=== PATIENT | male | born 1990 | race African-American/Black ===

== ENCOUNTER 2016-08-04 02:10 | Emergency (ER) | payer OTHER ==
[2016-08-04 03:20] LABS: MEAN CORPUSCULAR HEMOGLOBIN 30.2 pg (27.0-33.0); MEAN CORPUSCULAR HGB CONC 32.1 g/dl (32.0-36.5); MEAN CORPUSCULAR VOLUME 94.1 fl (80.0-96.0); RED CELL DISTRIBUTION WIDTH 14.1 % (11.5-14.5); WHITE BLOOD COUNT 7.6 K/mm3 (4.0-10.0)
[2016-08-04 03:33] LABS: AMPHETAMINES LEVEL URINE NEGATIVE (NEGATIVE); BENZODIAZEPINES URINE NEGATIVE (NEGATIVE); COCAINE METABOLITE URINE NEGATIVE (NEGATIVE); CONTROL LINE INT CTR LINE PRESENT; METHADONE URINE NEGATIVE (NEGATIVE); OPIATES URINE NEGATIVE (NEGATIVE); TRICYCLIC ANTIDEPRESS URINE NEGATIVE (NEGATIVE)
[2016-08-04 03:47] LABS: ALBUMIN 4.1 GM/DL (3.2-5.2); ALBUMIN/GLOBULIN RATIO 1.05 (1.00-1.93); ALKALINE PHOSPHATASE 94 U/L (45-117); ALT/SGPT 30 U/L (12-78); ANION GAP 10 MEQ/L (8-16); AST/SGOT 18 U/L (15-37); BILIRUBIN,DIRECT 0.1 MG/DL (0.0-0.2); BILIRUBIN,TOTAL 0.5 MG/DL (0.2-1.0); BLOOD UREA NITROGEN 10 MG/DL (7-18); CALCIUM LEVEL 8.9 MG/DL (8.5-10.1); CARBON DIOXIDE LEVEL 27 MEQ/L (21-32); CHLORIDE LEVEL 108 MEQ/L (98-107); CREATININE FOR GFR 1.08 MG/DL (0.70-1.30); GLOMERULAR FILTRATION RATE > 60.0 (>60); GLUCOSE, FASTING 91 MG/DL (70-105); POTASSIUM SERUM 4.2 MEQ/L (3.5-5.1); SODIUM LEVEL 145 MEQ/L (136-145)
--- NOTE | 2016-08-04 10:13 | EDDOCDS ---
Physician Documentation [facility] Name: Rojelio Lund Age: 25 yrs Sex: Male : 1990 Arrival Date: 08/04/2016 Time: 02:10 Bed U2 Private MD: Disposition: 08/04/16 10:08 Discharged to Home/Self Care. Impression: Alcohol abuse counseling and surveillance, Alcohol abuse with intoxication. - Condition is Stable. - Discharge Instructions: Alcohol Intoxication, Alcohol Use Disorder. - Medication Reconciliation, Local Pharmacy Hours form. - Follow up: Private Physician; When: 1 - 2 days. - Problem is new. - Symptoms have improved. - Notes: return if worsening symptoms Historical: - Allergies: No known drug Allergies; - Home Meds: 1. none - PMHx: insomonia; chronic hip pain right; - PSHx: none; - Social history: Smoking status: Patient states was never smoker of tobacco. No barriers to communication noted, The patient speaks fluent German, Speaks appropriately for age. - Family history: Not pertinent. - : The pt / caregiver states he / she is not on anticoagulants. Home medication list is obtained from the patient. - Exposure Risk Screening:: None identified. Vital Signs: 08/04 02:30 BP 129 / 81; Pulse 99; Resp 18; Temp 99.0(T); Pulse Ox 98% on R/A; Pain 7/10; cp1 06:31 BP 128 / 82; Pulse 78; Resp 18; Temp 98.2(T); Pulse Ox 99% on R/A; Pain 0/10; cp1 10:10 BP 141 / 68; Pulse 94; Resp 18; Temp 97.8(T); Pulse Ox 99% on R/A; dpm 02:30 patient states he has chronic right hip pain 7/10. States Motrin and Tylenol doesn't cp1 help. Also, states hip pain is from his hip at one popping out a while ago. MDM: 02:55 Consult PFS/PSA/Broadcast Maintenance Engineer ordered. jul 02:55 Consult PFS/PSA/Broadcast Maintenance Engineer: Patient's case requires discussion with on-call brandi Psychiatrist ordered. 02:55 PSA/PFS to call Nursing Ambulatory Service Representative, to enter patient data [place] if patient brandi involuntarily admitted or transferred for SI or HI ordered. 02:55 Confirm accurate psychiatric medication list and times of last dosage ordered. jul 02:55 Detain Pt Until Medically/PFS Cleared ordered. brandi 02:56 Acetaminophen Level Ordered. EDMS 02:56 Basic Metabolic Profile Ordered. EDMS 02:56 Complete Blood Count Ordered. EDMS 02:56 Drug Eval Toxicology ED Only Ordered. EDMS 02:56 Ethyl Alcohol (ethanol) Ordered. EDMS 02:56 Liver Profile Ordered. EDMS 02:56 Salicylate Level Ordered. EDMS 02:56 Thyroid Stimulating Hormone Ordered. EDMS 03:53 Acetaminophen Level Reviewed. mm11 03:53 Basic Metabolic Profile Reviewed. mm11 03:53 Ethyl Alcohol (ethanol) Reviewed. mm11 03:53 Salicylate Level Reviewed. mm11 03:53 Complete Blood Count Reviewed. mm11 03:53 Drug Eval Toxicology ED Only Reviewed. mm11 03:53 Liver Profile Reviewed. mm11 03:53 Thyroid Stimulating Hormone Reviewed. mm11 04:55 Financial registration complete. hs2 05:15 REGULAR DIET PLASTIC VIRK+DIET ordered. EDMS 08:32 ED course: pt signed out to nc. pending psych disposition. pt with no complaints. mlg. ml 09:59 Consult PFS/PSA/Broadcast Maintenance Engineer complete. rb 09:59 Consult PFS/PSA/Broadcast Maintenance Engineer: Patient's case requires discussion with on-call rb Psychiatrist complete. 09:59 PSA/PFS to call Nursing Ambulatory Service Representative, to enter patient data [place] if patient rb involuntarily admitted or transferred for SI or HI complete. Signatures: Dispatcher [employer] [facility] Alice Bell MD MD ml Newman, Jill New, RN RN jan Zecher, Calvin, RN RN cz Baxter, Renee, PSA PSA rb Harrison Espana, DO DO mm11 Lissett Leroy RN RN dsf Stanton, Hillary, Reg Reg hs2 MTDD
--- NOTE | 2016-08-04 10:14 | EDDOCDS ---
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 Mental Health Triage Level: Level 1- Pt displays no suicidal or homicidal ideations and does not appear to be a danger to self or others. Adult Sepsis Screening: The patient does not have new or worsening altered mentation. Patient's respiratory rate is less than 22. Systolic blood pressure is greater than 100. Patient has a qSOFA score of 0- Negative Sepsis Screen. Suicide/Homicide risk assessment- the patient denies having any suicidal and/or homicidal ideations and does not present with any other emotional, behavioral or mental health complaints. Status: The patient is an active duty manufacturer's service representative. Transition of care: patient was not received from another setting of care. 02:21 Acuity: ORLY Level 3 cz 02:21 Method Of Arrival: Walkin/Carried/Asstd cz Triage Assessment: 02:27 General: Appears in no apparent distress, Behavior is anxious. Pain: Location: cz buttocks. Pt Declines HIV testing. Historical: - Allergies: No known drug Allergies; - Home Meds: 1. none - PMHx: insomonia; chronic hip pain right; - PSHx: none; - Social history: Smoking status: Patient states was never smoker of tobacco. No barriers to communication noted, The patient speaks fluent Lebanese, Speaks appropriately for age. - Family history: Not pertinent. - : The pt / caregiver states he / she is not on anticoagulants. Home medication list is obtained from the patient. - Exposure Risk Screening:: None identified. Screenin:10 Screening information is obtained from the patient. Fall risk: No risks identified. dsf Assistance ADL's: requires no assistance with activities of daily living. Abuse/DV Screen: The patient / caregiver reports he/she is: not in a situation that causes fear, pain or injury. Nutritional screening: No deficits noted. Advance Directives: Currently, there is no health care proxy. home support is adequate. Assessment: 04:08 General: Appears in no apparent distress, comfortable, Behavior is cooperative, Smells cp1 of alcohol. Pain: Denies pain. Respiratory: Respiratory effort is even, unlabored, Respiratory pattern is regular, symmetrical. 04:30 General: Appears in no apparent distress, comfortable, Behavior is appropriate for age, ko2 cooperative. Neurological: Level of Consciousness is awake, alert. Respiratory: Respiratory effort is even, unlabored, Respiratory pattern is regular, symmetrical. Derm: Skin is normal. Musculoskeletal: Range of motion intact in all extremities. 06:31 General: Appears in no apparent distress, comfortable, Behavior is appropriate for age, cp1 cooperative. Pain: Denies pain. Respiratory: Respiratory effort is even, unlabored, Respiratory pattern is regular, symmetrical. 07:15 Reassessment: Patient appears in no apparent distress at this time. Respiratory: kr3 Respiratory effort is even, unlabored. Derm: Skin is normal. 08:10 Reassessment: Patient appears in no apparent distress at this time. Reassessment: has kr3 not woken to eat breakfast. Respiratory: Respiratory effort is even, unlabored. 09:10 General: Appears in no apparent distress, eating breakfast with his chain of command . dsf Neurological: Level of Consciousness is awake, alert. Respiratory: Airway is patent Respiratory effort is even, unlabored, Respiratory pattern is regular, symmetrical. Derm: Skin is pink, warm & dry. 10:11 Adult Sepsis Screening: The patient does not have new or worsening altered mentation. dsf Patient's respiratory rate is less than 22. Systolic blood pressure is greater than 100. Patient has a qSOFA score of 0- Negative Sepsis Screen. General: Appears in no apparent distress, comfortable, Behavior is appropriate for age, cooperative. Pain: Denies pain. Neurological: Level of Consciousness is awake, alert, Oriented to person, place, time. Cardiovascular: No deficits noted. Respiratory: No deficits noted. Derm: Skin is pink, warm & dry. Mental Health Eval: 09:49 Mental health consult is initiated at 09:40. Status: The patient is an active rb duty manufacturer's service representative. [facility] Behavioral Health: The patient is not an established patient of [facility] Behavioral Health. Referral Information: Evaluation referral is generated by the patient himself / herself. The patient was referred for evaluation because Pt presented to ED after +ETOH looking to talk to someone, for information to help someone else, according to Pt. Pt denies SI/Hi, denies AH/VH. Pt stated, "talking to a lot of People who are depressed". "Wanted to talk to someone for advise"."Probably should do that when I am sober next time". . Subjective: The patients chief complaint is +ETOH. Delusions are denied. Patient's mood is appropriate. Hallucinations are denied. Mental Health history: sleep disturbance, Mental Health Admissions: None. Current Outpatient Mental Health Services: Psychiatrist / Agency: [facility] \\\\ [facility]. . . Current living environment is The patient currently lives in a [employer] [facility]. Patient presents to Emergency Department with the following symptoms within the past 2 weeks: alcohol abuse, sleep disturbance - insomnia. Disposition: Medically cleared for disposition by Alice Bell MD Psychiatric Consult is deferred per ED physician, Dr Dr. Cuellar. The patient has a safe destination which is Dr. Cuellar felt Pt could be D/C back to [facility]. Pt will followup with [facility], and [facility]. Pt transported back to [facility] via [facility]. No further interventions needed at this time. 09:59 [place] because the patient does not display any rb suicidal or homicidal ideations and does not pose a risk to self or others. Vital Signs: 02:30 BP 129 / 81; Pulse 99; Resp 18; Temp 99.0(T); Pulse Ox 98% on R/A; Pain 7/10; cp1 06:31 BP 128 / 82; Pulse 78; Resp 18; Temp 98.2(T); Pulse Ox 99% on R/A; Pain 0/10; cp1 10:10 BP 141 / 68; Pulse 94; Resp 18; Temp 97.8(T); Pulse Ox 99% on R/A; dpm 02:30 patient states he has chronic right hip pain 7/10. States Motrin and Tylenol doesn't cp1 help. Also, states hip pain is from his hip at one popping out a while ago. Vitals: 02:27 Log In Time: August 04, 2016 at 02:10. cz ED Course: 02:12 Patient visited by Giselle Montez. gjb 02:12 Patient moved to Waiting b 02:18 Patient moved to [address] 02:26 Triage Initiated cz 02:30 Patient visited by Iggy Yan. tr 03:02 Patient visited by Iggy Yan. tr 03:16 Patient visited by Iggy Yan. tr 03:16 Acetaminophen Level Sent. cp1 03:16 Basic Metabolic Profile Sent. cp1 03:16 Complete Blood Count Sent. cp1 03:16 Drug Eval Toxicology ED Only Sent. cp1 03:16 Ethyl Alcohol (ethanol) Sent. cp1 03:16 Liver Profile Sent. cp1 03:16 Salicylate Level Sent. cp1 03:16 Thyroid Stimulating Hormone Sent. cp1 03:19 Patient name changed from Serrato\\S\\\\S\\Gryer\\S\\ to Serrato\\S\\ \\S\\Gryer. EDMS 03:30 Patient visited by Orquidea Bailey LPN. cp1 03:35 Patient visited by Iggy Yan. tr 03:44 Harrison Espana DO is Attending Physician. mm11 03:44 Patient visited by Harrison Espana DO. mm11 03:45 Patient visited by Iggy Yan. tr 03:48 Patient visited by Iggy Yan. tr 03:57 Patient visited by Iggy Yan. tr 04:18 Patient visited by Iggy Yan. tr 04:29 Patient visited by Harrison Espana DO. mm11 04:32 Patient visited by Iggy Yan. tr 04:44 Patient visited by Iggy Yan. tr 04:58 Patient visited by Iggy Yan. tr 05:12 Patient visited by Iggy Yan. tr 05:40 Patient visited by Orquidea Bailey LPN. cp1 05:46 Patient visited by Iggy Yan. tr 06:00 Patient visited by Iggy Yan. tr 06:14 Patient visited by Iggy Yan. tr 06:28 Patient visited by Iggy Yan. tr 06:45 Patient visited by Iggy Yan. tr 06:58 Patient visited by Iggy Yan. tr 07:15 Patient visited by Goyo Hill. dpm 07:29 Patient visited by Goyo Hill. dpm 07:42 Patient visited by Goyo Hill. dpm 07:58 Patient visited by Goyo Hill. dpm 08:11 The patient / caregiver is instructed regarding the plan of care and ED course. Patient kr3 has correct armband on for positive identification. Placed in psych safe attire. Security observing. 08:12 No IV's were initiated during this patient's visit. No procedures done that require kr3 assistance. 08:25 Patient visited by Goyo Hill. dpm 08:32 Attending Physician role handed off by Harrison Espana DO ml 08:32 Alice Bell MD is Attending Physician. ml 08:40 Patient visited by Goyo Hill. dpm 08:56 Patient visited by Goyo Hill. dpm 09:10 Patient visited by Lissett Leroy RN. dsf 09:26 Patient visited by Goyo Hill. dpm 09:47 Patient visited by Goyo Hill. dpm 10:02 Patient visited by Goyo Hill. dpm Order Results: Lab Order: Acetaminophen Level; SPEC'M 08/04/16 03:13 Test: ACETAMINOPHEN LEVEL; Value: < 2.0; Range: 10.0-30.0; Abnormal: Below low normal; Units: UG/ML; Status: F Lab Order: Basic Metabolic Profile; SPEC'M 08/04/16 03:13 Test: GLUCOSE, FASTING; Value: 91; Range: 70-105; Units: MG/DL; Status: F Test: BLOOD UREA NITROGEN; Value: 10; Range: 7-18; Units: MG/DL; Status: F Test: CREATININE FOR GFR; Value: 1.08; Range: 0.70-1.30; Units: MG/DL; Status: F Test: GLOMERULAR FILTRATION RATE; Value: > 60.0; Range: >60; Status: F Test: SODIUM LEVEL; Value: 145; Range: 136-145; Units: MEQ/L; Status: F Test: POTASSIUM SERUM; Value: 4.2; Range: 3.5-5.1; Units: MEQ/L; Status: F Test: CHLORIDE LEVEL; Value: 108; Range: 98-107; Abnormal: Above high normal; Units: MEQ/L; Status: F Test: CARBON DIOXIDE LEVEL; Value: 27; Range: 21-32; Units: MEQ/L; Status: F Test: ANION GAP; Value: 10; Range: 8-16; Units: MEQ/L; Status: F Test: CALCIUM LEVEL; Value: 8.9; Range: 8.5-10.1; Units: MG/DL; Status: F Test Note: ; Units are mL/min/1.73 m2 Chronic Kidney Disease Staging per NKF: Stage I & II GFR >=60 Normal to Mildly Decreased Stage III GFR 30-59 Moderately Decreased Stage IV GFR 15-29 Severely Decreased Stage V GFR <15 Very Little GFR Left ESRD GFR <15 on FACULTY HEAD Lab Order: Complete Blood Count; SPEC'M 08/04/16 03:13 Test: WHITE BLOOD COUNT; Value: 7.6; Range: 4.0-10.0; Units: K/mm3; Status: F Test: RED BLOOD COUNT; Value: 5.16; Range: 4.30-6.10; Units: M/mm3; Status: F Test: HEMOGLOBIN; Value: 15.6; Range: 14.0-18.0; Units: g/dl; Status: F Test: HEMATOCRIT; Value: 48.6; Range: 42.0-52.0; Units: %; Status: F Test: MEAN CORPUSCULAR VOLUME; Value: 94.1; Range: 80.0-96.0; Units: fl; Status: F Test: MEAN CORPUSCULAR HEMOGLOBIN; Value: 30.2; Range: 27.0-33.0; Units: pg; Status: F Test: MEAN CORPUSCULAR HGB CONC; Value: 32.1; Range: 32.0-36.5; Units: g/dl; Status: F Test: RED CELL DISTRIBUTION WIDTH; Value: 14.1; Range: 11.5-14.5; Units: %; Status: F Test: PLATELET COUNT, AUTOMATED; Value: 215; Range: 150-450; Units: k/mm3; Status: F Lab Order: Drug Eval Toxicology ED Only; SPEC'M 08/04/16 03:08 Test: AMPHETAMINES LEVEL URINE; Value: NEGATIVE; Range: NEGATIVE; Status: F Test: BARBITURATES URINE; Value: NEGATIVE; Range: NEGATIVE; Status: F Test: BENZODIAZEPINES URINE; Value: NEGATIVE; Range: NEGATIVE; Status: F Test: CANNABINOIDS URINE; Value: NEGATIVE; Range: NEGATIVE; Status: F Test: COCAINE METABOLITE URINE; Value: NEGATIVE; Range: NEGATIVE; Status: F Test: METHADONE URINE; Value: NEGATIVE; Range: NEGATIVE; Status: F Test: OPIATES URINE; Value: NEGATIVE; Range: NEGATIVE; Status: F Test: TRICYCLIC ANTIDEPRESS URINE; Value: NEGATIVE; Range: NEGATIVE; Status: F Test Note: ; ALL PRESUMPTIVE POSITIVE FINDINGS ARE UNCONFIRMED NORMAL VALUES THRESHOLD IN NG/ML AMPHETAMINES 1000 METHAMPHETAMINES 1000 BARBITURATES 300 BENZODIAZEPINES 300 CANNABINOIDS (THC) 50 COCAINE METABOLITE 300 METHADONE 300 OPIATES 300 PHENCYCLIDINE 25 TRICYCLIC ANTIDEPRESSANTS 1000 RESULTS ARE FOR MEDICAL PURPOSES ONLY. ALL URINE SPECIMENS WILL BE SAVED FOR 3 DAYS. IF CONFIRMATION OF A PRESUMPTIVE POSTIVE SCREEN RESULT IS DESIRED, CALL CHEMISTRY ([phone]) AND REQUEST URINE TO BE SENT TO REFERENCE LAB. FOR A LIST OF CLOSELY RELATED COMPOUNDS PLEASE CALL THE LAB. Lab Order: Ethyl Alcohol (ethanol); SPEC'M 08/04/16 03:13 Test: ETHYL ALCOHOL (ETHANOL); Value: 0.158; Range: 0.000-0.010; Abnormal: Above high normal; Units: %; Status: F Lab Order: Liver Profile; SPEC'M 08/04/16 03:13 Test: AST/SGOT; Value: 18; Range: 15-37; Units: U/L; Status: F Test: ALT/SGPT; Value: 30; Range: 12-78; Units: U/L; Status: F Test: ALKALINE PHOSPHATASE; Value: 94; Range: 45-117; Units: U/L; Status: F Test: BILIRUBIN,TOTAL; Value: 0.5; Range: 0.2-1.0; Units: MG/DL; Status: F Test: BILIRUBIN,DIRECT; Value: 0.1; Range: 0.0-0.2; Units: MG/DL; Status: F Test: TOTAL PROTEIN; Value: 8.0; Range: 6.4-8.2; Units: GM/DL; Status: F Test: ALBUMIN; Value: 4.1; Range: 3.2-5.2; Units: GM/DL; Status: F Test: ALBUMIN/GLOBULIN RATIO; Value: 1.05; Range: 1.00-1.93; Status: F Lab Order: Salicylate Level; SPEC'M 08/04/16 03:13 Test: SALICYLATE LEVEL; Value: < 1.7; Range: 5.0-30.0; Abnormal: Below low normal; Units: MG/DL; Status: F Lab Order: Thyroid Stimulating Hormone; SPEC'M 08/04/16 03:13 Test: THYROID STIMULATING HORMONE; Value: 0.659; Range: 0.358-3.740; Units: uIU/ML; Status: F Outcome: 08:11 No special radiology studies were completed. kr3 10:08 Discharge ordered by Provider. ml 10:11 Discharge Assessment: Patient awake, alert and oriented x 3. No cognitive and/or dsf functional deficits noted. Patient verbalized understanding of disposition instructions. patient administered narcotics - no. The following High Risk Discharge criteria are identified: Yes, seen by PFS . Discharged to home ambulatory, with chain of command. Condition: stable. Discharge instructions given to patient, Instructed on discharge instructions, follow up and referral plans. Demonstrated understanding of instructions, Pt was receptive of discharge instructions/ teaching. Property sent home with patient. 10:12 Patient left the ED. dsf Signatures: Dispatcher [employer] EDMS Alice Bell MD MD ml Zecher, Calvin, RN RN Colleen Underwood, PERICO PSA lara Yan, Chelo Becker RN RN fide3 Harrison Espana, DO mm11 Orquidea Bailey,HENRIK BILLYN cp1 Lissett LeroyRN RN dsf Goyo Hill dpm, Kari, RN RN ko2 Beck, Gabriela gjb JANICED
--- NOTE | 2016-08-06 12:38 | EDDOCDS ---
Physician Documentation [facility] Name: Rojelio Lund Age: 25 yrs Sex: Male : 1990 Arrival Date: 08/04/2016 Time: 02:10 Bed U2 Private MD: Disposition: 08/04/16 10:08 Discharged to Home/Self Care. Impression: Alcohol abuse counseling and surveillance, Alcohol abuse with intoxication. - Condition is Stable. - Discharge Instructions: Alcohol Intoxication, Alcohol Use Disorder. - Medication Reconciliation, Local Pharmacy Hours form. - Follow up: Private Physician; When: 1 - 2 days. - Problem is new. - Symptoms have improved. - Notes: return if worsening symptoms Historical: - Allergies: No known drug Allergies; - Home Meds: 1. none - PMHx: insomonia; chronic hip pain right; - PSHx: none; - Social history: Smoking status: Patient states was never smoker of tobacco. No barriers to communication noted, The patient speaks fluent Occitan, Speaks appropriately for age. - Family history: Not pertinent. - : The pt / caregiver states he / she is not on anticoagulants. Home medication list is obtained from the patient. - Exposure Risk Screening:: None identified. Vital Signs: 08/04 02:30 BP 129 / 81; Pulse 99; Resp 18; Temp 99.0(T); Pulse Ox 98% on R/A; Pain 7/10; cp1 06:31 BP 128 / 82; Pulse 78; Resp 18; Temp 98.2(T); Pulse Ox 99% on R/A; Pain 0/10; cp1 10:10 BP 141 / 68; Pulse 94; Resp 18; Temp 97.8(T); Pulse Ox 99% on R/A; dpm 02:30 patient states he has chronic right hip pain 7/10. States Motrin and Tylenol doesn't cp1 help. Also, states hip pain is from his hip at one popping out a while ago. MDM: 02:55 Consult PFS/PSA/Thoracic Medicine Physician ordered. jul 02:55 Consult PFS/PSA/Thoracic Medicine Physician: Patient's case requires discussion with on-call brandi Psychiatrist ordered. 02:55 PSA/PFS to call Nursing Associate Store Manager, to enter patient data [place] if patient brandi involuntarily admitted or transferred for SI or HI ordered. 02:55 Confirm accurate psychiatric medication list and times of last dosage ordered. jul 02:55 Detain Pt Until Medically/PFS Cleared ordered. brandi 02:56 Acetaminophen Level Ordered. EDMS 02:56 Basic Metabolic Profile Ordered. EDMS 02:56 Complete Blood Count Ordered. EDMS 02:56 Drug Eval Toxicology ED Only Ordered. EDMS 02:56 Ethyl Alcohol (ethanol) Ordered. EDMS 02:56 Liver Profile Ordered. EDMS 02:56 Salicylate Level Ordered. EDMS 02:56 Thyroid Stimulating Hormone Ordered. EDMS 03:53 Acetaminophen Level Reviewed. mm11 03:53 Basic Metabolic Profile Reviewed. mm11 03:53 Ethyl Alcohol (ethanol) Reviewed. mm11 03:53 Salicylate Level Reviewed. mm11 03:53 Complete Blood Count Reviewed. mm11 03:53 Drug Eval Toxicology ED Only Reviewed. mm11 03:53 Liver Profile Reviewed. mm11 03:53 Thyroid Stimulating Hormone Reviewed. mm11 04:55 Financial registration complete. hs2 05:15 REGULAR DIET PLASTIC VIRK+DIET ordered. EDMS 08:32 ED course: pt signed out to [facility]. pending psych disposition. pt with no complaints. mlg. ml 09:59 Consult PFS/PSA/Thoracic Medicine Physician complete. rb 09:59 Consult PFS/PSA/Thoracic Medicine Physician: Patient's case requires discussion with on-call rb Psychiatrist complete. 09:59 PSA/PFS to call Nursing Associate Store Manager, to enter patient data [place] if patient rb involuntarily admitted or transferred for SI or HI complete. 10:39 T-Sheet-- Draft Copy was scanned into [employer] and attached to record. [facility] Signatures: Dispatcher [employer] [facility] Alice Bell MD MD ml Newman, Jill New, RN RN jan Zecher, Calvin, RN RN cz Baxter, Renee, PSA PSA rb Harrison Espana, DO mm11 Lissett Leroy RN RN dsf Ileen Pandey, Reg Reg hs2 Clarisse Sullivan The chart was reviewed and I authenticate all verbal orders and agree with the evaluation and treatment provided.Attachments: 10:39 T-Sheet-- Draft Copy [facility] Chart Complete MTDD
--- NOTE | 2016-08-06 12:39 | EDDOCDS ---
Physician Documentation [facility] Name: Rojelio Lund Age: 25 yrs Sex: Male : 1990 Arrival Date: 08/04/2016 Time: 02:10 Bed U2 Private MD: Disposition: 08/04/16 10:08 Discharged to Home/Self Care. Impression: Alcohol abuse counseling and surveillance, Alcohol abuse with intoxication. - Condition is Stable. - Discharge Instructions: Alcohol Intoxication, Alcohol Use Disorder. - Medication Reconciliation, Local Pharmacy Hours form. - Follow up: Private Physician; When: 1 - 2 days. - Problem is new. - Symptoms have improved. - Notes: return if worsening symptoms Historical: - Allergies: No known drug Allergies; - Home Meds: 1. none - PMHx: insomonia; chronic hip pain right; - PSHx: none; - Social history: Smoking status: Patient states was never smoker of tobacco. No barriers to communication noted, The patient speaks fluent Upper Sorbian, Speaks appropriately for age. - Family history: Not pertinent. - : The pt / caregiver states he / she is not on anticoagulants. Home medication list is obtained from the patient. - Exposure Risk Screening:: None identified. Vital Signs: 08/04 02:30 BP 129 / 81; Pulse 99; Resp 18; Temp 99.0(T); Pulse Ox 98% on R/A; Pain 7/10; cp1 06:31 BP 128 / 82; Pulse 78; Resp 18; Temp 98.2(T); Pulse Ox 99% on R/A; Pain 0/10; cp1 10:10 BP 141 / 68; Pulse 94; Resp 18; Temp 97.8(T); Pulse Ox 99% on R/A; dpm 02:30 patient states he has chronic right hip pain 7/10. States Motrin and Tylenol doesn't cp1 help. Also, states hip pain is from his hip at one popping out a while ago. MDM: 02:55 Consult PFS/PSA/Special Events Driver ordered. jul 02:55 Consult PFS/PSA/Special Events Driver: Patient's case requires discussion with on-call brandi Psychiatrist ordered. 02:55 PSA/PFS to call Nursing Boring Machine Set Up Operator Jig, to enter patient data on [place] Safe Act if patient brandi involuntarily admitted or transferred for SI or HI ordered. 02:55 Confirm accurate psychiatric medication list and times of last dosage ordered. jul 02:55 Detain Pt Until Medically/PFS Cleared ordered. brandi 02:56 Acetaminophen Level Ordered. EDMS 02:56 Basic Metabolic Profile Ordered. EDMS 02:56 Complete Blood Count Ordered. EDMS 02:56 Drug Eval Toxicology ED Only Ordered. EDMS 02:56 Ethyl Alcohol (ethanol) Ordered. EDMS 02:56 Liver Profile Ordered. EDMS 02:56 Salicylate Level Ordered. EDMS 02:56 Thyroid Stimulating Hormone Ordered. EDMS 03:53 Acetaminophen Level Reviewed. mm11 03:53 Basic Metabolic Profile Reviewed. mm11 03:53 Ethyl Alcohol (ethanol) Reviewed. mm11 03:53 Salicylate Level Reviewed. mm11 03:53 Complete Blood Count Reviewed. mm11 03:53 Drug Eval Toxicology ED Only Reviewed. mm11 03:53 Liver Profile Reviewed. mm11 03:53 Thyroid Stimulating Hormone Reviewed. mm11 04:55 Financial registration complete. hs2 05:15 REGULAR DIET PLASTIC VIRK+DIET ordered. EDMS 08:32 ED course: pt signed out to nc. pending psych disposition. pt with no complaints. mlg. ml 09:59 Consult PFS/PSA/Special Events Driver complete. rb 09:59 Consult PFS/PSA/Special Events Driver: Patient's case requires discussion with on-call rb Psychiatrist complete. 09:59 PSA/PFS to call Nursing Boring Machine Set Up Operator Jig, to enter patient data [place] Safe [place] if patient rb involuntarily admitted or transferred for SI or HI complete. 10:39 T-Sheet-- Draft Copy was scanned into [employer] and attached to record. [facility] Signatures: Dispatcher [employer] [facility] Alice Bell MD MD ml Newman, Jill New, RN RN jan Zecher, Calvin, RN RN cz Baxter, Renee, PSA PSA rb Harrison Espana, DO mm11 Lissett Leroy RN RN dsf Ilene Pandey, Reg Reg hs2 Clarisse Sullivan The chart was reviewed and I authenticate all verbal orders and agree with the evaluation and treatment provided.Attachments: 10:39 T-Sheet-- Draft Copy [facility] Chart Complete MTDD
--- NOTE | 2016-08-06 12:39 | EDDOCDS ---
Nurse's Notes [facility] Name: Rojelio Lund Age: 25 yrs Sex: Male : 1990 Arrival Date: 08/04/2016 Time: 02:10 Bed [facility] Private MD: Diagnosis: Alcohol abuse counseling and surveillance;Alcohol abuse with intoxication Presentation: 08/04 02:21 Presenting complaint: Patient states: he has been feeling funny for some time trying to cz get help for himself,pt denies SI/HI pt is active duty pt states he has anger issues and wanted to talk to someone not in the . Mental Health Triage Level: Level 1- Pt displays no suicidal or homicidal ideations and does not appear to be a danger to self or others. Adult Sepsis Screening: The patient does not have new or worsening altered mentation. Patient's respiratory rate is less than 22. Systolic blood pressure is greater than 100. Patient has a qSOFA score of 0- Negative Sepsis Screen. Suicide/Homicide risk assessment- the patient denies having any suicidal and/or homicidal ideations and does not present with any other emotional, behavioral or mental health complaints. Status: The patient is an active duty food service supervisor. Transition of care: patient was not received from another setting of care. 02:21 Acuity: ORLY Level 3 cz 02:21 Method Of Arrival: Walkin/Carried/Asstd cz Triage Assessment: 02:27 General: Appears in no apparent distress, Behavior is anxious. Pain: Location: cz buttocks. Pt Declines HIV testing. Historical: - Allergies: No known drug Allergies; - Home Meds: 1. none - PMHx: insomonia; chronic hip pain right; - PSHx: none; - Social history: Smoking status: Patient states was never smoker of tobacco. No barriers to communication noted, The patient speaks fluent Finnish, Speaks appropriately for age. - Family history: Not pertinent. - : The pt / caregiver states he / she is not on anticoagulants. Home medication list is obtained from the patient. - Exposure Risk Screening:: None identified. Screenin:10 Screening information is obtained from the patient. Fall risk: No risks identified. dsf Assistance ADL's: requires no assistance with activities of daily living. Abuse/DV Screen: The patient / caregiver reports he/she is: not in a situation that causes fear, pain or injury. Nutritional screening: No deficits noted. Advance Directives: Currently, there is no health care proxy. home support is adequate. Assessment: 04:08 General: Appears in no apparent distress, comfortable, Behavior is cooperative, Smells cp1 of alcohol. Pain: Denies pain. Respiratory: Respiratory effort is even, unlabored, Respiratory pattern is regular, symmetrical. 04:30 General: Appears in no apparent distress, comfortable, Behavior is appropriate for age, ko2 cooperative. Neurological: Level of Consciousness is awake, alert. Respiratory: Respiratory effort is even, unlabored, Respiratory pattern is regular, symmetrical. Derm: Skin is normal. Musculoskeletal: Range of motion intact in all extremities. 06:31 General: Appears in no apparent distress, comfortable, Behavior is appropriate for age, cp1 cooperative. Pain: Denies pain. Respiratory: Respiratory effort is even, unlabored, Respiratory pattern is regular, symmetrical. 07:15 Reassessment: Patient appears in no apparent distress at this time. Respiratory: kr3 Respiratory effort is even, unlabored. Derm: Skin is normal. 08:10 Reassessment: Patient appears in no apparent distress at this time. Reassessment: has kr3 not woken to eat breakfast. Respiratory: Respiratory effort is even, unlabored. 09:10 General: Appears in no apparent distress, eating breakfast with his chain of command . dsf Neurological: Level of Consciousness is awake, alert. Respiratory: Airway is patent Respiratory effort is even, unlabored, Respiratory pattern is regular, symmetrical. Derm: Skin is pink, warm & dry. 10:11 Adult Sepsis Screening: The patient does not have new or worsening altered mentation. dsf Patient's respiratory rate is less than 22. Systolic blood pressure is greater than 100. Patient has a qSOFA score of 0- Negative Sepsis Screen. General: Appears in no apparent distress, comfortable, Behavior is appropriate for age, cooperative. Pain: Denies pain. Neurological: Level of Consciousness is awake, alert, Oriented to person, place, time. Cardiovascular: No deficits noted. Respiratory: No deficits noted. Derm: Skin is pink, warm & dry. Mental Health Eval: 09:49 Mental health consult is initiated at 09:40. Status: The patient is an active rb duty food service supervisor. [facility]: The patient is not an established patient of [facility]. Referral Information: Evaluation referral is generated by the patient himself / herself. The patient was referred for evaluation because Pt presented to ED after +ETOH looking to talk to someone, for information to help someone else, according to Pt. Pt denies SI/Hi, denies AH/VH. Pt stated, "talking to a lot of People who are depressed". "Wanted to talk to someone for advise"."Probably should do that when I am sober next time". . Subjective: The patients chief complaint is +ETOH. Delusions are denied. Patient's mood is appropriate. Hallucinations are denied. Mental Health history: sleep disturbance, Mental Health Admissions: None. Current Outpatient Mental Health Services: Psychiatrist / Agency: [facility] \\\\ [facility]. . . Current living environment is The patient currently lives in a [facility]. Patient presents to Emergency Department with the following symptoms within the past 2 weeks: alcohol abuse, sleep disturbance - insomnia. Disposition: Medically cleared for disposition by Alice Bell MD Psychiatric Consult is deferred per ED physician, Dr Dr. Cuellar. The patient has a safe destination which is Dr. Cuellar felt Pt could be D/C back to [facility]. Pt will followup with [facility], and [facility]. Pt transported back to [facility] via [facility]. No further interventions needed at this time. 09:59 [place] Safe [place] Safe [place] is [place] because the patient does not display any rb suicidal or homicidal ideations and does not pose a risk to self or others. Vital Signs: 02:30 BP 129 / 81; Pulse 99; Resp 18; Temp 99.0(T); Pulse Ox 98% on R/A; Pain 7/10; cp1 06:31 BP 128 / 82; Pulse 78; Resp 18; Temp 98.2(T); Pulse Ox 99% on R/A; Pain 0/10; cp1 10:10 BP 141 / 68; Pulse 94; Resp 18; Temp 97.8(T); Pulse Ox 99% on R/A; dpm 02:30 patient states he has chronic right hip pain 7/10. States Motrin and Tylenol doesn't cp1 help. Also, states hip pain is from his hip at one popping out a while ago. Vitals: 02:27 Log In Time: August 04, 2016 at 02:10. cz ED Course: 02:12 Patient visited by Giselle Montez. gjb 02:12 Patient moved to Waiting b 02:18 Patient moved to [address] 02:26 Triage Initiated cz 02:30 Patient visited by Iggy Yan. tr 03:02 Patient visited by Iggy Yan. tr 03:16 Patient visited by Iggy Yan. tr 03:16 Acetaminophen Level Sent. cp1 03:16 Basic Metabolic Profile Sent. cp1 03:16 Complete Blood Count Sent. cp1 03:16 Drug Eval Toxicology ED Only Sent. cp1 03:16 Ethyl Alcohol (ethanol) Sent. cp1 03:16 Liver Profile Sent. cp1 03:16 Salicylate Level Sent. cp1 03:16 Thyroid Stimulating Hormone Sent. cp1 03:19 Patient name changed from Serrato\\S\\\\S\\Gryer\\S\\ to Serrato\\S\\ \\S\\Gryer. EDMS 03:30 Patient visited by Orquidea Bailey LPN. cp1 03:35 Patient visited by Iggy Yan. tr 03:44 Harrison Epsana DO is Attending Physician. mm11 03:44 Patient visited by Harrison Espana DO. mm11 03:45 Patient visited by Iggy Yan. tr 03:48 Patient visited by Iggy Yan. tr 03:57 Patient visited by Iggy Yan. tr 04:18 Patient visited by Iggy Yan. tr 04:29 Patient visited by Harrison Espana DO. mm11 04:32 Patient visited by Iggy Yan. tr 04:44 Patient visited by Iggy Yan. tr 04:58 Patient visited by Iggy Yan. tr 05:12 Patient visited by Iggy Yan. tr 05:40 Patient visited by Orquidea Bailey LPN. cp1 05:46 Patient visited by Igyg Yan. tr 06:00 Patient visited by Iggy Yan. tr 06:14 Patient visited by Iggy Yan. tr 06:28 Patient visited by Iggy Yan. tr 06:45 Patient visited by Iggy Yan. tr 06:58 Patient visited by Iggy Yan. tr 07:15 Patient visited by Goyo Hill. dpm 07:29 Patient visited by Goyo Hill. dpm 07:42 Patient visited by Goyo Hill. dpm 07:58 Patient visited by Goyo Hill. dpm 08:11 The patient / caregiver is instructed regarding the plan of care and ED course. Patient kr3 has correct armband on for positive identification. Placed in psych safe attire. Security observing. 08:12 No IV's were initiated during this patient's visit. No procedures done that require kr3 assistance. 08:25 Patient visited by Goyo Hill. dpm 08:32 Attending Physician role handed off by Harrison Espana DO ml 08:32 Alice Bell MD is Attending Physician. ml 08:40 Patient visited by Goyo Hill. dpm 08:56 Patient visited by Goyo Hill. dpm 09:10 Patient visited by Lissett Leroy RN. dsf 09:26 Patient visited by Goyo Hill. dpm 09:47 Patient visited by Goyo Hill. dpm 10:02 Patient visited by Goyo Hill. dpm 10:39 T-Sheet-- Draft Copy was scanned into [employer] and attached to record. [facility] Order Results: Lab Order: Acetaminophen Level; SPEC'M 08/04/16 03:13 Test: ACETAMINOPHEN LEVEL; Value: < 2.0; Range: 10.0-30.0; Abnormal: Below low normal; Units: UG/ML; Status: F Lab Order: Basic Metabolic Profile; SPEC'M 08/04/16 03:13 Test: GLUCOSE, FASTING; Value: 91; Range: 70-105; Units: MG/DL; Status: F Test: BLOOD UREA NITROGEN; Value: 10; Range: 7-18; Units: MG/DL; Status: F Test: CREATININE FOR GFR; Value: 1.08; Range: 0.70-1.30; Units: MG/DL; Status: F Test: GLOMERULAR FILTRATION RATE; Value: > 60.0; Range: >60; Status: F Test: SODIUM LEVEL; Value: 145; Range: 136-145; Units: MEQ/L; Status: F Test: POTASSIUM SERUM; Value: 4.2; Range: 3.5-5.1; Units: MEQ/L; Status: F Test: CHLORIDE LEVEL; Value: 108; Range: 98-107; Abnormal: Above high normal; Units: MEQ/L; Status: F Test: CARBON DIOXIDE LEVEL; Value: 27; Range: 21-32; Units: MEQ/L; Status: F Test: ANION GAP; Value: 10; Range: 8-16; Units: MEQ/L; Status: F Test: CALCIUM LEVEL; Value: 8.9; Range: 8.5-10.1; Units: MG/DL; Status: F Test Note: ; Units are mL/min/1.73 m2 Chronic Kidney Disease Staging per NKF: Stage I & II GFR >=60 Normal to Mildly Decreased Stage III GFR 30-59 Moderately Decreased Stage IV GFR 15-29 Severely Decreased Stage V GFR <15 Very Little GFR Left ESRD GFR <15 on PLATE CONDITIONER Lab Order: Complete Blood Count; SPEC'M 08/04/16 03:13 Test: WHITE BLOOD COUNT; Value: 7.6; Range: 4.0-10.0; Units: K/mm3; Status: F Test: RED BLOOD COUNT; Value: 5.16; Range: 4.30-6.10; Units: M/mm3; Status: F Test: HEMOGLOBIN; Value: 15.6; Range: 14.0-18.0; Units: g/dl; Status: F Test: HEMATOCRIT; Value: 48.6; Range: 42.0-52.0; Units: %; Status: F Test: MEAN CORPUSCULAR VOLUME; Value: 94.1; Range: 80.0-96.0; Units: fl; Status: F Test: MEAN CORPUSCULAR HEMOGLOBIN; Value: 30.2; Range: 27.0-33.0; Units: pg; Status: F Test: MEAN CORPUSCULAR HGB CONC; Value: 32.1; Range: 32.0-36.5; Units: g/dl; Status: F Test: RED CELL DISTRIBUTION WIDTH; Value: 14.1; Range: 11.5-14.5; Units: %; Status: F Test: PLATELET COUNT, AUTOMATED; Value: 215; Range: 150-450; Units: k/mm3; Status: F Lab Order: Drug Eval Toxicology ED Only; SPEC'M 08/04/16 03:08 Test: AMPHETAMINES LEVEL URINE; Value: NEGATIVE; Range: NEGATIVE; Status: F Test: BARBITURATES URINE; Value: NEGATIVE; Range: NEGATIVE; Status: F Test: BENZODIAZEPINES URINE; Value: NEGATIVE; Range: NEGATIVE; Status: F Test: CANNABINOIDS URINE; Value: NEGATIVE; Range: NEGATIVE; Status: F Test: COCAINE METABOLITE URINE; Value: NEGATIVE; Range: NEGATIVE; Status: F Test: METHADONE URINE; Value: NEGATIVE; Range: NEGATIVE; Status: F Test: OPIATES URINE; Value: NEGATIVE; Range: NEGATIVE; Status: F Test: TRICYCLIC ANTIDEPRESS URINE; Value: NEGATIVE; Range: NEGATIVE; Status: F Test Note: ; ALL PRESUMPTIVE POSITIVE FINDINGS ARE UNCONFIRMED NORMAL VALUES THRESHOLD IN NG/ML AMPHETAMINES 1000 METHAMPHETAMINES 1000 BARBITURATES 300 BENZODIAZEPINES 300 CANNABINOIDS (THC) 50 COCAINE METABOLITE 300 METHADONE 300 OPIATES 300 PHENCYCLIDINE 25 TRICYCLIC ANTIDEPRESSANTS 1000 RESULTS ARE FOR MEDICAL PURPOSES ONLY. ALL URINE SPECIMENS WILL BE SAVED FOR 3 DAYS. IF CONFIRMATION OF A PRESUMPTIVE POSTIVE SCREEN RESULT IS DESIRED, CALL CHEMISTRY ([phone]) AND REQUEST URINE TO BE SENT TO REFERENCE LAB. FOR A LIST OF CLOSELY RELATED COMPOUNDS PLEASE CALL THE LAB. Lab Order: Ethyl Alcohol (ethanol); SPEC'M 08/04/16 03:13 Test: ETHYL ALCOHOL (ETHANOL); Value: 0.158; Range: 0.000-0.010; Abnormal: Above high normal; Units: %; Status: F Lab Order: Liver Profile; SPEC'M 08/04/16 03:13 Test: AST/SGOT; Value: 18; Range: 15-37; Units: U/L; Status: F Test: ALT/SGPT; Value: 30; Range: 12-78; Units: U/L; Status: F Test: ALKALINE PHOSPHATASE; Value: 94; Range: 45-117; Units: U/L; Status: F Test: BILIRUBIN,TOTAL; Value: 0.5; Range: 0.2-1.0; Units: MG/DL; Status: F Test: BILIRUBIN,DIRECT; Value: 0.1; Range: 0.0-0.2; Units: MG/DL; Status: F Test: TOTAL PROTEIN; Value: 8.0; Range: 6.4-8.2; Units: GM/DL; Status: F Test: ALBUMIN; Value: 4.1; Range: 3.2-5.2; Units: GM/DL; Status: F Test: ALBUMIN/GLOBULIN RATIO; Value: 1.05; Range: 1.00-1.93; Status: F Lab Order: Salicylate Level; SPEC'M 08/04/16 03:13 Test: SALICYLATE LEVEL; Value: < 1.7; Range: 5.0-30.0; Abnormal: Below low normal; Units: MG/DL; Status: F Lab Order: Thyroid Stimulating Hormone; SPEC'M 08/04/16 03:13 Test: THYROID STIMULATING HORMONE; Value: 0.659; Range: 0.358-3.740; Units: uIU/ML; Status: F Outcome: 08:11 No special radiology studies were completed. kr3 10:08 Discharge ordered by Provider. ml 10:11 Discharge Assessment: Patient awake, alert and oriented x 3. No cognitive and/or dsf functional deficits noted. Patient verbalized understanding of disposition instructions. patient administered narcotics - no. The following High Risk Discharge criteria are identified: Yes, seen by PFS . Discharged to home ambulatory, with chain of command. Condition: stable. Discharge instructions given to patient, Instructed on discharge instructions, follow up and referral plans. Demonstrated understanding of instructions, Pt was receptive of discharge instructions/ teaching. Property sent home with patient. 10:12 Patient left the ED. dsf Signatures: Dispatcher [employer] EDMS Alice Bell MD MD ml Zecher, Calvin, RN RN cz Baxter, Renee, PERICO PSA lara Yan, Chelo Becker RN RN fide3 Harrison Espana, DO mm11 Orquidea Bailey LPN LPN cp1 Lissett Leroy RN RN dsf Goyo Hill dpm, Kari, RN RN Giselle Eng Sarah seh Chart Complete MTDD
== END 2016-08-04 10:12 | disposition home or self-care (01) ==
LOC: M ED 02:10
DX: F10.120 Alcohol abuse with intoxication, uncomplicated (principal); F43.0 Acute stress reaction; G47.00 Insomnia, unspecified; M25.551 Pain in right hip
CPT/HCPCS: 36415; 80048; 80076; 80306; 84443; 85027; 99284; G0480

== ENCOUNTER 2017-02-20 10:44 | Emergency (ER) | payer OTHER ==
[~2017-02-20] VITALS: Ht 185.4 cm; Wt 97.7 kg
[2017-02-20 13:05] VITALS: BP 116/74
[2017-02-20] MEDS ORDERED: IBUP-1022 PO (13:25)
--- NOTE | 2017-02-20 13:37 | REP ---
LEFT KNEE SERIES, FIVE VIEWS: There is no evidence of an acute fracture, dislocation or intrinsic bone disease. IMPRESSION: No fracture or dislocation. Signed by Rubén Cuellar MD 02/20/2017 05:57 P
== END 2017-02-20 13:38 | disposition home or self-care (01) ==
LOC: M ED 10:44
DX: M25.462 Effusion, left knee (principal); Z72.0 Tobacco use

== ENCOUNTER 2017-05-14 13:50 | Emergency (ER) | payer OTHER ==
[~2017-05-14] VITALS: Ht 185.4 cm; Wt 99.0 kg
[~2017-05-14 13:50] MED LIST: IBUP-1022 PO
[2017-05-14] MEDS ORDERED: CELE1CAP4 PO (14:27)
[2017-05-14] MEDS ORDERED: SULF500T2 PO (16:17)
[2017-05-14 16:48] LABS: BASO % 0.4 % (0.0-1.0); EOS # 0.1 10^3/uL (0.0-0.50); EOS % 0.8 % (0.0-3.0); IMMATURE GRANULOCYTE % 0.3 % (0-0); LYMPH # 1.9 10^3/uL (1.5-6.5); LYMPH % 24.8 % (24.0-44.0); MEAN CORPUSCULAR HEMOGLOBIN 30.9 pg (27.0-33.0); MEAN CORPUSCULAR HGB CONC 32.9 g/dl (32.0-36.5); MONO # 0.7 10^3/uL (0.0-0.8); MONO % 8.5 % (0.0-5.0); NEUTROPHILS % 65.2 % (36.0-66.0); PLATELET COUNT, AUTOMATED 231 10^3/uL (150-450); WHITE BLOOD COUNT 7.7 10^3/uL (4.0-10.0)
[2017-05-14 17:13] VITALS: BP 147/95
[2017-05-14 17:14] LABS: ALBUMIN 3.9 GM/DL (3.2-5.2); ALBUMIN/GLOBULIN RATIO 0.98 (1.00-1.93); ALKALINE PHOSPHATASE 88 U/L (45-117); ALT/SGPT 34 U/L (12-78); ANION GAP 5 MEQ/L (8-16); AST/SGOT 23 U/L (15-37); BILIRUBIN,TOTAL 0.3 MG/DL (0.2-1.0); BLOOD UREA NITROGEN 12 MG/DL (7-18); CALCIUM LEVEL 9.2 MG/DL (8.5-10.1); CARBON DIOXIDE LEVEL 31 MEQ/L (21-32); CHLORIDE LEVEL 106 MEQ/L (98-107); CREATININE FOR GFR 1.15 MG/DL (0.70-1.30); GLOMERULAR FILTRATION RATE > 60.0 (>60); GLUCOSE, FASTING 97 MG/DL (70-105); POTASSIUM SERUM 4.3 MEQ/L (3.5-5.1); SODIUM LEVEL 142 MEQ/L (136-145); TOTAL PROTEIN 7.9 GM/DL (6.4-8.2)
[2017-05-14 17:19] LABS: ERYTHROCYTE SEDIMENTATION RATE 5 mm/hr (0-15)
--- NOTE | 2017-05-14 17:33 | REP ---
BILATERAL HIP, AP PELVIS, FIVE VIEWS: HISTORY: Pain. Right hip, two views: There is no acute fracture or dislocation. The joint space is normal in appearance. IMPRESSION: There is no acute fracture or dislocation. Left hip, two views: There is no acute fracture or dislocation. The joint space is normal in appearance. IMPRESSION: There is no acute fracture or dislocation. Signed by Enrrique Schroeder MD 05/14/2017 06:06 P
[2017-05-17 00:06] LABS: Lyme Disease IgG/IgM Antibodie <0.91 ISR (0.00-0.90); Lyme Disease IgM Ab Quantitati <0.80 index (0.00-0.79)
== END 2017-05-14 17:14 | disposition home or self-care (01) ==
LOC: M ED 13:50
DX: M06.9 Rheumatoid arthritis, unspecified (principal)

== ENCOUNTER 2017-05-16 18:23 | Emergency (ER) | payer OTHER ==
[~2017-05-16] VITALS: Ht 182.9 cm; Wt 99.1 kg
[2017-05-16 18:23] VITALS: BP 151/87
[~2017-05-16 18:23] MED LIST changes: +CELE1CAP4 PO; +SULF500T2 PO
== END 2017-05-16 19:55 | disposition home or self-care (01) ==
LOC: M ED 18:23
DX: Z56.9 Unspecified problems related to employment (principal); R45.4 Irritability and anger; M19.90 Unspecified osteoarthritis, unspecified site; F17.210 Nicotine dependence, cigarettes, uncomplicated; Z79.899 Other long term (current) drug therapy

== ENCOUNTER → 2018-07-17 | Outpatient (CLI) | payer OTHER ==
--- NOTE | 2018-07-17 14:48 | REP ---
LUMBAR SPINE, SEVEN VIEWS: HISTORY: Back pain. There is no acute fracture or subluxation. The intervertebral discs are normal in height. The facet joints are normal in appearance. IMPRESSION: There is no acute fracture or subluxation. Electronically Signed by Enrrique Schroeder MD 07/17/2018 02:53 P
--- NOTE | 2018-07-17 14:51 | REP ---
BILATERAL HIP, FOUR VIEWS: HISTORY: Hip pain. RIGHT HIP: There is no acute fracture or dislocation. The joint space is normal in appearance. IMPRESSION: There is no acute fracture or dislocation. LEFT HIP: There is no acute fracture or dislocation. The joint space is normal in appearance. IMPRESSION: There is no acute fracture or dislocation. Electronically Signed by Enrrique Schroeder MD 07/17/2018 02:58 P
== END ==
LOC: M RAD 12:15
PROVIDERS: ATTEND Physician Assistant Medical
DX: M25.551 Pain in right hip (principal); M25.552 Pain in left hip; M54.5 Low back pain

== ENCOUNTER 2018-10-04 11:19 | Emergency (ER) | payer OTHER ==
[~2018-10-04] VITALS: Ht 185.4 cm; Wt 77.3 kg
[2018-10-04 11:19] VITALS: BP 147/75
[2018-10-04] MEDS ORDERED: ZOLO50TA PO (11:28)
[2018-10-04] MEDS ORDERED: NS 1,000 ML IV ONE (11:45)
[2018-10-04] MEDS ORDERED: ONDANSETRON 4MG/2ML VIAL (J2405) IV ONE (11:45)
[2018-10-04] MEDS ORDERED: MORPHINE 4 MG/ML 1ML VIAL/SYRINGE (J2270) IV ONE (11:45)
[2018-10-04 12:05] LABS: BASO % 0.4 % (0.0-1.0); EOS # 0.4 10^3/uL (0.0-0.50); HEMATOCRIT 43.1 % (42.0-52.0); HEMOGLOBIN 14.4 g/dl (13.5-17.5); LYMPH # 2.2 10^3/uL (1.5-6.5); LYMPH % 24.9 % (24.0-44.0); MEAN CORPUSCULAR HEMOGLOBIN 30.8 pg (27.0-33.0); MEAN CORPUSCULAR HGB CONC 33.4 g/dl (32.0-36.5); MEAN CORPUSCULAR VOLUME 92.1 fl (80.0-96.0); MONO # 0.7 10^3/uL (0.0-0.8); NEUTROPHILS # 5.6 10^3/uL (1.8-7.7); NEUTROPHILS % 62.4 % (36.0-66.0); PLATELET COUNT, AUTOMATED 228 10^3/uL (150-450); RED BLOOD COUNT 4.68 10^6/uL (4.30-6.10); WHITE BLOOD COUNT 8.9 10^3/uL (4.0-10.0)
[2018-10-04] MEDS ORDERED: KETOROLAC 30 MG/ML VIAL (J1885) IV ONE (12:15)
[2018-10-04] MEDS: GASTROGRAFIN SOLUTION 30ML PO SCH ×2 (12:23→12:56)
[2018-10-04 12:36] LABS: ALBUMIN 3.9 GM/DL (3.2-5.2); ALT/SGPT 17 U/L (12-78); AMYLASE 97 U/L (25-115); BILIRUBIN,DIRECT 0.3 MG/DL (0.0-0.2); BILIRUBIN,TOTAL 0.8 MG/DL (0.2-1.0); BLOOD UREA NITROGEN 11 MG/DL (7-18); CALCIUM LEVEL 8.7 MG/DL (8.5-10.1); CARBON DIOXIDE LEVEL 26 MEQ/L (21-32); CHLORIDE LEVEL 107 MEQ/L (98-107); CREATININE FOR GFR 1.11 MG/DL (0.70-1.30); GLOMERULAR FILTRATION RATE > 60.0 (>60); GLUCOSE, FASTING 91 MG/DL (70-100); LIPASE 31 U/L (73-393); POTASSIUM SERUM 3.8 MEQ/L (3.5-5.1); SODIUM LEVEL 141 MEQ/L (136-145); TOTAL PROTEIN 7.4 GM/DL (6.4-8.2)
[2018-10-04] MEDS ORDERED: ISOVUE-370 76% 100ML VIAL (Q9967) As Ordered ONE (13:37)
--- NOTE | 2018-10-04 14:48 | REP ---
CT of the abdomen pelvis with IV and oral contrast: There are no comparisons. The visualized lung velazquez are unremarkable. The hepatic parenchyma, gallbladder, pancreas and spleen are normal size and unremarkable. The adrenals are unremarkable. The kidneys are unremarkable. The abdominal aorta is unremarkable. There is no bowel distension or obstruction. Pelvis: The appendix has a normal appearance. The terminal ileum has a normal appearance. The bladder is unremarkable. The pelvic bowel loops are unremarkable. There are is no ascites. There are bilateral inguinal lymph nodes, not enlarged. Impression: Essentially negative CT of the abdomen and pelvis. Electronically Signed by Rubén Garsia MD 10/04/2018 02:40 P
[2018-10-04] MEDS ORDERED: KETO10TAB PO (15:34)
[2018-10-04] MEDS ORDERED: FLOM0.4C39 PO (15:35)
[2018-10-04] MEDS ORDERED: NORCOTAB PO (15:35)
[2018-10-04] MEDS ORDERED: ONDA4TAB6 PO (15:35)
== END 2018-10-04 15:53 | disposition home or self-care (01) ==
LOC: M ED 11:19
DX: N20.1 Calculus of ureter (principal); F32.9 Major depressive disorder, single episode, unspecified; Z79.899 Other long term (current) drug therapy
CPT/HCPCS: 74177; 80048; 80076; 81001; 82150; 83690; 85025; 87086; 96361; 96374; 96375; 99283; J1885; J2270; J2405; Q9963; Q9967